=== PATIENT | female | born 1985 | race Caucasian/White ===

== ENCOUNTER 2018-10-24 00:44 | Emergency (ER) | payer MEDICAID ==
[~2018-10-24] VITALS: Ht 152.4 cm; Wt 106.0 kg
[2018-10-24] MEDS ORDERED: IBUPROFEN 600MG TABLET PO STA (01:15)
[2018-10-24 03:10] VITALS: BP 133/54
== END 2018-10-24 03:19 | disposition home or self-care (01) ==
LOC: ER 00:44
DX: S30.0XXA Contusion of lower back and pelvis, initial encounter (principal); S09.8XXA Other specified injuries of head, initial encounter; W10.8XXA Fall (on) (from) other stairs and steps, initial encounter; Y93.89 Activity, other specified; Y92.69 Other specified industrial and construction area as the place of occurrence of the external cause; Y99.8 Other external cause status
CPT/HCPCS: 72100; 99284